=== PATIENT | male | born 1965 | race African-American/Black ===

== ENCOUNTER 2017-03-18 23:53 | Emergency (ER) | payer OTHER ==
[~2017-03-18] VITALS: Wt 89.5 kg
[~2017-03-18 23:53] MED LIST: BENA5TAB2; HYDR12.53 PO
[2017-03-19] MEDS ORDERED: DIPHTH/TET/ACEL PERTUSS (ADULT) 0.5 ML VIAL IM* ONE (00:30)
[2017-03-19] MEDS ORDERED: TETRACAINE 0.5% 4 ML OPH LEFT EYE ONE (00:30)
[2017-03-19] MEDS ORDERED: IBUPROFEN 800 MG TAB PO ONE (00:30)
[2017-03-19] MEDS ORDERED: FLUORESCEIN STRIP LEFT EYE ONE (01:00)
[2017-03-19 01:02] LABS: ADD UMIC NO; URINE BILIRUBIN (Dip) NEGATIVE (NEGATIVE); URINE BLOOD (Dip) NEGATIVE (NEGATIVE); URINE COLOR LT. YELLOW (YELLOW); URINE GLUCOSE (Dip) NEGATIVE (NEGATIVE); URINE KETONES (Dip) NEGATIVE (NEGATIVE); URINE LEUKOCYTE ESTERASE (Dip) NEGATIVE (NEGATIVE); URINE NITRITE (Dip) NEGATIVE (NEGATIVE); URINE TOTAL PROTEIN (Dip) NEGATIVE (NEGATIVE); URINE UROBILINOGEN (Dip) 0.2 E.U./dL (0.1-1.0)
[2017-03-19] MEDS ORDERED: OFLO5DRO46 BOTH EYES (01:23)
--- NOTE | 2017-03-19 01:42 | ERD ---
ER Documentation Chief Complaint Date/Time DATE: 03/19/17 TIME: 01:39 Chief Complaint Left eye injury. Work accident HPI 51-year-old male patient with a past medical history of hypertension presents to the ED complaining of a left eye injury that occurred earlier at work. Reports that he works in construction. States that he tried pulling a screw out of the restroom and accidentally hit the lateral aspect of his eye. States that he has slight blurred vision to the left eye and eye pain but denies any diplopia, photophobia, vision loss, headache, bleeding, numbness or tingling, weakness, nausea, vomiting, fever, chills. Patient denies being up-to-date with his tetanus vaccine. States that he is also experiencing dysuria for 1 week. States that he has suprapubic pain that is consistent with his diagnosed urinary tract infection many years ago. Denies any chest pain, shortness of breath, abdominal pain, nausea, vomiting, diarrhea, constipation, scrotal pain, penile discharge. States that he is sometimes sexually active but denies being concerned about STDs. ROS All systems reviewed and are negative except as per history of present illness. Medications Home Meds Active Scripts Ofloxacin* (Ocuflox*) 0.3%-5 Ml Ophth Drops, 2 DROP BOTH EYES QID for 5 Days, BOTTLE Prov:HERMILA CHEN PA-C 03/19/17 Reported Medications Hydrochlorothiazide (Hydrochlorothiazide) 12.5 Mg Capsule, 12.5 MG PO DAILY 11/24/12 Benazepril Hcl* (Benazepril Hcl*) 5 Mg Tablet 10/13/12 Allergies Allergies: Coded Allergies: No Known Allergy (Unverified , 03/19/17) PMhx/Soc History of Surgery: No Anesthesia Reaction: No Hx Neurological Disorder: No Hx Respiratory Disorders: No Hx Cardiac Disorders: Yes (HTN) Hx Psychiatric Problems: No Hx Miscellaneous Medical Probl: No Hx Alcohol Use: Yes Hx Substance Use: No Hx Tobacco Use: No Smoking Status: Former smoker Physical Exam Vitals Vital Signs Date Time Temp Pulse Resp B/P Pulse Ox O2 Delivery O2 Flow Rate FiO2 03/18/17 23:59 97.2 86 18 117/79 95 Physical Exam Const: [id number], well-nourished. In no acute distress. Head: Atraumatic, normocephalic Eyes: Left injected conjunctiva. No purulent discharge. PERRLA. EOMI. No bleeding noted. ENT: Normal external ear. Ear canal without erythema. Tympanic membrane pearly kamara without effusion or bulging. Nasal canal clear with normal turbinates. Moist oropharynx without tonsillar exudates. Non-erythematous pharynx. Uvula midline. No drooling. No trismus. Neck: No cervical midline tenderness. Full range of motion. No meningismus. No cervical lymphadenopathy. No JVD. Resp: Clear to auscultation bilaterally. No wheezing, rhonchi, rales, or crackles. No accessory muscle use. No retractions. Cardio: Regular rate and rhythm. No murmurs, rubs or gallops. Abd: Soft, non tender, non distended. Normal bowel sounds. No palpable masses. No rebound tenderness. No guarding. Negative McBurney's Point. Negative Desai's Sign. Skin: Normal skin turgor. No petechiae or rashes. No lacerations. Back: No midline tenderness. No CVA tenderness. Ext: No cyanosis, or edema. Distal pulses intact bilaterally. Neur: Awake and alert. Normal gait. Normal coordination. Cranial Nerves II- VII intact. Normal finger to nose. Muscle strength 5/5. Sensation intact. Psych: Normal Mood and Affect Results 24 hrs Laboratory Tests Test 03/19/17 00:40 Urine Color LT. YELLOW Urine Clarity CLEAR Urine pH 6.5 Urine Specific [place] 1.020 Urine Ketones NEGATIVE Urine Nitrite NEGATIVE Urine Bilirubin NEGATIVE Urine Urobilinogen 0.2 E.U./dL Urine Leukocyte Esterase NEGATIVE Urine Hemoglobin NEGATIVE Urine Glucose NEGATIVE% Urine Total Protein NEGATIVE Current Medications Medications (Trade) Dose Ordered Sig/Jayden Route PRN Reason Start Time Stop Time Status Last Admin Dose Admin Tetracaine HCl (Tetracaine 0.5% Steri-Unit Floridalma) 1 drop ONCE ONCE LEFT EYE 03/19/17 00:30 03/19/17 00:34 DC Ibuprofen (Motrin) 800 mg ONCE ONCE PO 03/19/17 00:30 03/19/17 00:31 Cancel Diphtheria/ Tetanus/Acell Pertussis (Adacel) 0.5 ml ONCE ONCE IM* 03/19/17 00:30 03/19/17 00:34 DC 03/19/17 00:45 Fluorescein Sodium (Fprtr-V-Yhzxp) 1 strip ONCE ONCE LEFT EYE 03/19/17 01:00 03/19/17 01:01 DC Procedures/MDM This is a 51-year-old male patient with no significant past medical history presents the ED complaining of a left eye injury. Patient is afebrile and nontoxic-appearing. Patient has normal vital signs. Tetanus vaccine administered by nursing staff to patient with no complications. Eye Exam w/ Wood's lamp: Visual Acuity: Left 20/20 Right 20/20 Visual Sinha: Intact in all four quadrants bilaterally Lac ducts/glands: No swelling Lids w/ evertion: Normal, no foreign body Conj/Monte[place]: Clear, negative Fluorescein/Darren's Anterior Chamber: Clear Patient's ocular symptoms have stabilized while they have been evaluated in the department and are appropriate for outpatient work up. No Darren sign noted. No periorbital cellulitis or fracture. No fluorescein uptake noted. Low suspicion for lacerations, ruptured globe, retinal detachment, periorbital cellulitis, acute angle closure glaucoma, deep space infection, iritis, traumatic hyphema, conjunctivitis, subconjunctival hemorrhage, corneal abrasion , corneal ulcer, pterygium, hypopyon, blepharitis, hordeolum, chalazion, or other emergent conditions. Prophylactic topical antibiotics prescribed - Ocuflox. Strictly instructed patient to follow up with an self storage manager within 24 hours. Instructed patient to return to the ED for any worsening symptoms. Patient is hemodynamically stable. Patient's questions were answered. Patient understood and agreed with discharge plan. Departure Diagnosis: Primary Impression: Eye injury Encounter type: initial encounter Laterality: left Qualified Code: S05.92XA - Left eye injury, initial encounter Additional Impression: Dysuria Condition: Stable Patient Instructions: Dysuria, Corneal Injury, Eye Protection at Work: First Aid Referrals: [facility] [place] [facility] YOU HAVE RECEIVED A MEDICAL SCREENING EXAM AND THE RESULTS INDICATE THAT YOU DO NOT HAVE A CONDITION THAT REQUIRES URGENT TREATMENT IN THE EMERGENCY DEPARTMENT. FURTHER EVALUATION AND TREATMENT OF YOUR CONDITION CAN WAIT UNTIL YOU ARE SEEN IN YOUR DOCTORS OFFICE WITHIN THE NEXT 1-2 DAYS. IT IS YOUR RESPONSIBILITY TO MAKE AN APPOINTMENT FOR FOLOW-UP CARE. IF YOU HAVE A PRIMARY DOCTOR --you should call your primary doctor and schedule an appointment IF YOU DO NOT HAVE A PRIMARY DOCTOR YOU CAN CALL OUR PHYSICIAN REFERRAL HOTLINE AT IF YOU CAN NOT AFFORD TO SEE A PHYSICIAN YOU CAN CHOSE FROM THE FOLLOWING [facility] [address] [facility] [address] [place] [facility] [address] [facility] [address] [facility] [address] [facility] [address] [facility] [facility] YOU HAVE RECEIVED A MEDICAL SCREENING EXAM AND THE RESULTS INDICATE THAT YOU DO NOT HAVE A CONDITION THAT REQUIRES URGENT TREATMENT IN THE EMERGENCY DEPARTMENT. FURTHER EVALUATION AND TREATMENT OF YOUR CONDITION CAN WAIT UNTIL YOU ARE SEEN IN YOUR DOCTORS OFFICE WITHIN THE NEXT 1-2 DAYS. IT IS YOUR RESPONSIBILITY TO MAKE AN APPOINTMENT FOR FOLOW-UP CARE. IF YOU HAVE A PRIMARY DOCTOR --you should call your primary doctor and schedule and appointment IF YOU DO NOT HAVE A PRIMARY DOCTOR YOU CAN CALL OUR PHYSICIAN REFERRAL HOTLINE AT . IF YOU CAN NOT AFFORD TO SEE A PHYSICIAN YOU CAN CHOSE FROM THE FOLLOWING [facility] INSTITUTIONS: [facility] [address] [place] [address] [facility] [address] [place] [address] [facility] [address] [place] [address] [facility] Hours: Mon - Mon 9:00 AM - 5:00 PM Additional Instructions: Call your your opthalmologist for an appointment on Monday and follow up with them for further evaluation and treatment. Follow up with your primary care for your urinary pain. If culture comes back positive for infection, you will be contacted for antibiotics. See the doctor sooner or return here if your condition worsens before your appointment time. HERMILA CHEN PA-C March 19, 2017 01:42
== END 2017-03-19 01:33 | disposition home or self-care (01) ==
LOC: FTE 23:53
DX: S05.92XA Unspecified injury of left eye and orbit, initial encounter (principal); I10 Essential (primary) hypertension; R30.0 Dysuria; W22.8XXA Striking against or struck by other objects, initial encounter; Y92.69 Other specified industrial and construction area as the place of occurrence of the external cause; Z23 Encounter for immunization; Z87.891 Personal history of nicotine dependence
CPT/HCPCS: 81003; 87086; 90471; 90715; Z7502; Z7610; 99283

== ENCOUNTER 2018-10-26 11:52 | Day surgery (SDC) | END 2018-10-26 18:40 | disposition home or self-care (01) ==